=== PATIENT | female | born 2000 | race Caucasian/White ===

== ENCOUNTER 2023-12-12 21:21 | Emergency (ER) | payer OTHER, SELFPAY ==
[2023-12-12 21:22] VITALS: BP 128/83
[2023-12-12 22:05] VITALS: BMI 36.4
[2023-12-12 22:09] VITALS: BP 110/81
--- NOTE | 2023-12-12 22:57 | ED.GENMED ---
History of Present Illness
<ANN-MARIE Hull - Last Filed: 12/13/23 21:05>
General
Chief Complaint: Throat Problem
Source: patient
Exam Limitations: none
Time Seen by Provider: 12/12/23 22:16
Nursing documentation reviewed up to this point in time: agreed with
History of Present Illness
History of Present Illness:
Patient is a 23-year-old female who was eating fish prior to arrival and felt that the fishbone got stuck in her throat and still feels the sensation. She is able to swallow her own secretions without difficulty. She denies any shorntess of breath
.
Past History
<ANN-MARIE Hull - Last Filed: 12/13/23 21:05>
Past History
ED Past Medical History: None
ED Past Surgical History: None
Social History
Tobacco: Non-smoker
Alcohol: None
Drug: None
Personal: Single
Living: with family
Review of Systems
<ANN-MARIE Hull - Last Filed: 12/13/23 21:05>
Review of Systems
Allergies reviewed?: Yes
All Other Systems: ROS reviewed and negative except as documented in HPI and ROS
Constitutional: Reports no symptoms
EENT: Reports other (foreign body sensation in throat )
Respiratory: Reports no symptoms; Denies cough or trouble breathing
Phy Exam
<ANN-MARIE Hull - Last Filed: 12/13/23 21:05>
General Physical Exam
General Presentation: no apparent distress
General age: appears stated age
General Skin: warm and dry
General Habitus: normal
General Mental: alert
General Hydration: appears well hydrated
ENT Exam
ENT Exam: EOMI, neck supple and other (Airway patent no drooling tolerating secretions well)
Cardiovascular Exam
Cardiovascular Exam: regular rate/rhythm, no murmur and normal peripheral pulses
Pulmonary Exam
Pulmonary Exam: lungs clear and no respiratory distress
Neurological Exam
Neurological Exam: alert and oriented x3
Musculoskeletal Exam
Musculoskeletal Exam: full ROM
Skin Exam
Skin Exam: normal color and warm/dry
Psychiatric Exam
Psychiatric Exam: normal mood/affect
Course
<ANN-MARIE Hull - Last Filed: 12/13/23 21:05>
Orders/Labs/Results
Orders:
Orders
12/12/23 22:23
Neck Soft Tissue [CR Soft Tissue Neck ] Urgent
Comment:
Reason For Exam: possible fish bone stuck in throat
12/12/23 23:01
IV Insert/Care/Rem.- Treatment PRN
0.9% Sodium Chloride 1000 ml [Nss] 1,000 ml IV BOLUS
12/12/23 23:06
Complete Blood Count/With Diff Urgent
Comprehensive Metabolic Panel Urgent
HCG, Serum Qualitative Screen Urgent
Comment: ADD ON
12/13/23 00:01
CT Neck With Iv Contrast Urgent
Reason For Exam: possible foreign body in throat (fishbone)
12/13/23 00:02
Add On- LAB Urgent
Tests Added?: HCG Qual
Abnormal Lab Results
12/12/23
23:06
WBC 12.6 H 10^3/uL
(4.8-10.8)
MCV 80.5 L fL
(81.0-99.0)
Abs Immat Gran (auto) 0.1 H 10^3/uL
(0-0.05)
Absolute Neuts (auto) 7.3 H 10^3/uL
(1.4-6.5)
Absolute Lymphs (auto) 4.2 H 10^3/uL
(1.2-3.4)
Absolute Monos (auto) 0.8 H 10^3/uL
(0.1-0.6)
Immature Gran % 0.9 H %
(0-0.5)
12/12/23 23:06
12/12/23 23:06
Vital Signs
Initial and Last Documented VS:
Initial Vital Signs
Temp Pulse Resp BP Pulse Ox
98.1 F 107 19 128/83 98
12/12/23 21:22 12/12/23 21:22 12/12/23 21:22 12/12/23 21:22 12/12/23 21:22
Last Documented Vital Signs
Temp Pulse Resp BP Pulse Ox
98.1 F 77 18 121/77 98
12/12/23 21:22 12/13/23 01:45 12/13/23 01:45 12/13/23 01:45 12/13/23 01:45
<Dorys Garrison, DO - Last Filed: 12/13/23 01:38>
Orders/Labs/Results
Orders:
Orders
12/12/23 22:23
Neck Soft Tissue [CR Soft Tissue Neck ] Urgent
Comment:
Reason For Exam: possible fish bone stuck in throat
12/12/23 23:01
IV Insert/Care/Rem.- Treatment PRN
0.9% Sodium Chloride 1000 ml [Nss] 1,000 ml IV BOLUS
12/12/23 23:06
Complete Blood Count/With Diff Urgent
Comprehensive Metabolic Panel Urgent
HCG, Serum Qualitative Screen Urgent
Comment: ADD ON
12/13/23 00:01
CT Neck With Iv Contrast Urgent
Reason For Exam: possible foreign body in throat (fishbone)
12/13/23 00:02
Add On- LAB Urgent
Tests Added?: HCG Qual
Abnormal Lab Results
12/12/23
23:06
WBC 12.6 H 10^3/uL
(4.8-10.8)
MCV 80.5 L fL
(81.0-99.0)
Abs Immat Gran (auto) 0.1 H 10^3/uL
(0-0.05)
Absolute Neuts (auto) 7.3 H 10^3/uL
(1.4-6.5)
Absolute Lymphs (auto) 4.2 H 10^3/uL
(1.2-3.4)
Absolute Monos (auto) 0.8 H 10^3/uL
(0.1-0.6)
Immature Gran % 0.9 H %
(0-0.5)
12/12/23 23:06
12/12/23 23:06
Vital Signs
Initial and Last Documented VS:
Initial Vital Signs
Temp Pulse Resp BP Pulse Ox
98.1 F 107 19 128/83 98
12/12/23 21:22 12/12/23 21:22 12/12/23 21:22 12/12/23 21:22 12/12/23 21:22
Last Documented Vital Signs
Temp Pulse Resp BP Pulse Ox
98.1 F 77 18 121/77 98
12/12/23 21:22 12/13/23 01:45 12/13/23 01:45 12/13/23 01:45 12/13/23 01:45
<ANN-MARIE Hull - Last Filed: 12/13/23 21:05>
MDM/Problems Addressed
Differential Diagnosis Includes:
Not limited to foreign body esophageal, abrasion to esophagus less likely aspiration
MDM/Problems Addressed:
Patient is a 23-year-old female who was eating fish and felt that this fishbone got stuck in her throat. She presents awake alert no acute distress she does describe this foreign body sensation. She has no drooling no trismus she is able to
swallow her own secretions she has a clear voice lungs are clear she is not on hypoxic. No acute findings on x-ray Case reviewed ED physician.
Will obtain CAT scan
0015: Care of patient at this time transferred to Dr. Garrison
<Dorys Garrison DO - Last Filed: 12/13/23 01:38>
*Radiology
Radiology exam reviewed: preliminary read by ED provider (Soft tissue neck shows no convincing evidence of fishbone foreign body.) and radiology read reviewed (CT of the neck shows no radiopaque foreign body. No inflammatory changes. Epiglottis is
unremarkable.)
*Pulse Oximetry
Patient hypoxic: no
*Critical Care Note
Total Time (30-74mins, 75-104mins- exclusive of procedures): Not Applicable
ED Attending Note
<ANN-MARIE Hull - Last Filed: 12/13/23 21:05>
-
Portions of this chart may have been created with voice recognition software.� Occasional wrong word or��sound alike� substitutions may have occurred due to the inherent limitations of voice recognition software.
<Dorys Garrison DO - Last Filed: 12/13/23 01:38>
ED Attending Note
Patient seen and examined by attending physician: Yes
I performed a history and physical exam of patient and discussed management with resident, I reviewed resident's note and agree with documented findings and plan of care.: Yes
ED Attending Note:
23-year-old female with no significant past medical history presents with posterior inferior pharyngeal foreign body sensation that began while eating fish that contained fish bones. She denies choking nor coughing, no difficulty swallowing but
does complain of focal pain in her throat with swallowing. No chest pain or shortness of breath.
23-year-old appears her stated age, bright and alert, pleasant, appears in no acute distress.
Respirations are easy and nonlabored. Handling secretions well.
HEENT: Posterior pharynx is clear without abrasion nor edema nor erythema.
Concern for posterior pharyngeal foreign body/fishbone.
Patient denies choking or gagging or coughing; history is not consistent with aspiration.
Initial soft tissue of the neck is not but due to persistent discomfort will check convincing for foreign body CT of the neck assess for foreign body/fishbone.
12/13/[address] soft tissue of the neck shows no evidence of radiopaque foreign body. No significant inflammatory changes. Epiglottis is unremarkable.
Incidental mild soft tissue in the anterior mediastinum is nonspecific but most suggestive of residual thymic tissue.
Recommend soft diet over the next several days, encourage clear liquids.
Follow-up with PCP for recheck.
Discharge Plan
Departure
Patient Disposition: Home (Routine Discharge)
Date of Disposition: 12/13/23
Time of Disposition: 01:35
Patient with high blood pressure during this ER visit?: No
Condition: Good
Discharge Problem:
Irritation of pharynx, swallowed fish bone
Instructions: Sore throat in adults, Soft Diet
Prescriptions:
No Action
sertraline 50 MG tablet
50 mg PO DAILY
loratadine 10 MG tablet
10 mg PO DAILY
hydrocodone-acetaminophen 1 TABLET tablet
1 - 2 tab PO Q4HPRN PRN (Reason: moderate to severe pain) Qty: 10 0RF
Referrals:
Carissa Andrade PA [Family Provider] - As needed
Interventions
Interventions:
*Risk Screen - Suicide Last Done: 12/12/23 21:22
*General Assessment Last Done: 12/12/23 21:22
*Neglect/Abuse Screening Last Done: 12/12/23 21:22
ED- Fall Risk Assessment Last Done: 12/12/23 22:05
*ED COVID-19 Vaccine History Last Done: 12/12/23 22:05
*Nursing Disposition Last Done: 12/13/23 01:45
ED-EENT Assessment Last Done: 12/12/23 22:05
ED- Pulmonary Assessment Last Done: 12/12/23 22:05
Discharge Date and Time
Discharge Date/Time: 12/13/23 01:45
Print Language: JAPANESE
[2023-12-12 23:19] LABS: % Basophils 0.2 % (0-2); % Eosinophils 2.5 % (0-6); % Immature Granulocytes 0.9 % (0-0.5); % Monocytes 5.9 % (1.7-9.3); % Neutrophils 57.5 % (42.2-75.2); Absolute Eosinophils 0.3 10^3/uL (0-0.7); Absolute Immature Granulocytes 0.1 10^3/uL (0-0.05); Absolute Lymphocytes 4.2 10^3/uL (1.2-3.4); Absolute Monocytes 0.8 10^3/uL (0.1-0.6); Absolute Neutrophils 7.3 10^3/uL (1.4-6.5); Hematocrit 37.6 % (37.0-47.0); Hemoglobin 13.3 g/dL (12.0-16.0); Mean Corp Hgb Conc. 35.4 g/dL (33.0-37.0); Mean Corpuscular Hgb 28.5 pg (27.0-31.0); Mean Corpuscular Volume 80.5 fL (81.0-99.0); Mean Platelet Volume 9.7 fL (7.4-10.4); Nucleated Red Blood Cells % 0 %; Platelet Count 212 10^3/uL (130-400); Red Blood Cell Count 4.67 10^6/uL (4.20-5.40); Red Cell Dist. Width 12.5 % (11.5-14.5); White Blood Cell Count 12.6 10^3/uL (4.8-10.8)
[2023-12-12] MEDS: NSS 1000 IV (23:21)
[2023-12-12 23:48] LABS: ALT (SGPT) 22 U/L (0-35); AST (SGOT) 22 U/L (14-36); Albumin 4.1 g/dl (3.5-5.0); Alkaline Phosphatase 86 U/L (38-126); Blood Urea Nitrogen 16 mg/dl (7-17); Calcium 9.7 mg/dl (8.4-10.2); Carbon Dioxide 25 mmol/L (22-30); Chloride 103 mmol/L (98-107); Estimated Creatinine Clearance 108 ml/min; Glucose 94 mg/dl (70-99); Potassium 3.8 mmol/L (3.5-5.1); Sodium 139 mmol/L (135-145); Total Bilirubin 0.8 mg/dl (0.2-1.3); Total Protein 6.4 g/dl (6.3-8.2); eGFR > 60.00
[2023-12-13 00:19] LABS: HCG, Serum Qualitative Screen Negative
[2023-12-13 01:45] VITALS: BP 121/77
== END 2023-12-13 01:45 | disposition home or self-care (01) ==
LOC: EMR 21:21
PROVIDERS: Nurse Practitioner; EMERGENCY PHYSICIAN Emergency Medicine; FAMILY PHYSICIAN Physician Assistant Medical
DX: J39.2 Other diseases of pharynx (principal)
CPT/HCPCS: 99284; 96360; 70360; 70491; 80053; 84703; 85025; Q9967

== ENCOUNTER 2023-12-25 20:59 | Emergency (ER) | payer OTHER, SELFPAY ==
[2023-12-25 21:02] VITALS: BP 137/103
[2023-12-25 21:17] VITALS: BP 118/88
[2023-12-25 21:19] VITALS: BMI 34.5
--- NOTE | 2023-12-25 22:58 | ED.GENMED ---
History of Present Illness
General
Chief Complaint: Suicidal Ideation
Source: patient
Exam Limitations: none
Time Seen by Provider: 12/25/23 21:38
Nursing documentation reviewed up to this point in time: agreed with
History of Present Illness
History of Present Illness:
The patient is a pleasant 23-year-old female with past medical history of anxiety and depression who reports that her depression has intensified over the last week. The patient reports that ' life just feels like too much'. Patient reports he has
thoughts of hurting himself. For example, she reports that she took two 500 mg tablets of Tylenol prior to arrival and thought about taking more but decided not to. She reports in the past she has thought about running into traffic. Patient
reports that she lives at home with her mom and dad and feels safe but does not want them to know she is here. 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 Patient denies drugs and alcohol. Patient reports that she feels
she needs inpatient psychiatric management.
Past History
Past History
ED Past Medical History: Psychiatric
ED Past Surgical History: Appendectomy
Social History
Tobacco: Non-smoker
Alcohol: None
Drug: None
Personal: Single
Living: with family
Employment: Student
Family History
Family History: Other
Review of Systems
Review of Systems
Allergies reviewed?: Yes
All Other Systems: ROS reviewed and negative except as documented in HPI and ROS
Constitutional: Reports no symptoms
EENT: Reports no symptoms
Respiratory: Reports no symptoms
Cardiac: Reports no symptoms
ABD/GI: Reports no symptoms
: Reports no symptoms
Musculoskeletal: Reports no symptoms
Skin: Reports no symptoms
Neurological: Reports no symptoms
Endocrine: Reports no symptoms
Hematologic/Lymphatic: Reports no symptoms
Psychiatric: Reports depression, anxiety and suicidal
Phy Exam
Physical Exam
Physical Exam:
Physical Exam
General: No apparent distress but flat affect. Poor eye contact
Neck: supple. no meningeal signs. normal psoterior pharynx
Heart: s1/s2 regular rate and rhythm, no murmur. equal radial pulses.
Lungs: no acute respiratory distress. clear bilaterally
Abdomen: normal bowel sounds. not tender. no CVAT
Neuro: alert and oriented. no focal neurological deficits
Skin: no rash
Psychiatric: well kept. interactive and cooperative
Extremities: no edema. no calf tenderness. negative homans. good distal pulses
Course
Orders/Labs/Results
Orders:
Orders
12/25/23 21:02
1:1 Observation - Suicide/ Violent Behavior As Directed
Crisis Consult Urgent
Reason for Consult: SUICIDAL
12/25/23 22:42
Test Result ONCE
12/25/23 22:53
Acetaminophen Urgent
Complete Blood Count/With Diff Urgent
Comprehensive Metabolic Panel Urgent
HCG, Serum Qualitative Screen Urgent
Salicylate Urgent
12/25/23 23:27
Urine Drug Abuse Screen Urgent
Date Specimen was Collected: 12/25/23
Time Specimen was Collected: 22:43
Abnormal Lab Results
12/25/23
22:53
WBC 14.4 H 10^3/uL
(4.8-10.8)
Abs Immat Gran (auto) 0.1 H 10^3/uL
(0-0.05)
Absolute Neuts (auto) 8.7 H 10^3/uL
(1.4-6.5)
Absolute Lymphs (auto) 4.4 H 10^3/uL
(1.2-3.4)
Absolute Monos (auto) 0.8 H 10^3/uL
(0.1-0.6)
Immature Gran % 0.7 H %
(0-0.5)
Salicylates < 1.0 L mg/dl
(2.0-20.0)
Acetaminophen < 10 L ug/ml
(10-30)
12/25/23 22:53
12/25/23 22:53
Vital Signs
Initial and Last Documented VS:
Initial Vital Signs
Temp Pulse Resp BP Pulse Ox
98.8 F 94 19 137/103 97
12/25/23 21:02 12/25/23 21:02 12/25/23 21:02 12/25/23 21:02 12/25/23 21:02
Last Documented Vital Signs
Temp Pulse Resp BP Pulse Ox
98.3 F 85 18 118/88 95
12/25/23 21:17 12/25/23 21:17 12/25/23 23:25 12/25/23 21:17 12/25/23 21:17
MDM/Problems Addressed
Differential Diagnosis Includes:
Acute depressive episode, acute anxiety
MDM/Problems Addressed:
Patient presents with acute anxiety and depression
Chronic conditions affecting care: Psychiatric illness
Acute Exacerbation and/or Progression of Chronic Illness: Psychiatric illness
*Pulse Oximetry
Patient hypoxic: no
*EKG
Interpreted by ED Provider?: NA
*Library Supervisor Interpretation
Rate: Library Supervisor- N/A
*Critical Care Note
Total Time (30-74mins, 75-104mins- exclusive of procedures): Not Applicable
Data Reviewed
Source: patient
Patient Management
Social determinants of health affecting care: Living situation and Strong social support
Discussion with other providers: Other ([place] crisis)
ED Attending Note
-
Portions of this chart may have been created with voice recognition software.� Occasional wrong word or��sound alike� substitutions may have occurred due to the inherent limitations of voice recognition software.
Discharge Plan
Departure
Prescriptions:
No Action
sertraline 50 MG tablet
50 mg PO DAILY
loratadine 10 MG tablet
10 mg PO DAILY
hydrocodone-acetaminophen 1 TABLET tablet
1 - 2 tab PO Q4HPRN PRN (Reason: moderate to severe pain) Qty: 10 0RF
Referrals:
UNKNOWN - PT NOT,INTERVIEWE [Family Provider] -
Interventions
Interventions:
*Risk Screen - Suicide Last Done: 12/25/23 21:02
*General Assessment Last Done: 12/25/23 21:02
*Neglect/Abuse Screening Last Done: 12/25/23 21:02
ED- Fall Risk Assessment Last Done: 12/25/23 21:54
*ED COVID-19 Vaccine History Last Done: 12/25/23 21:19
ED-Psychological Assessment Last Done: 12/25/23 21:19
Discharge Date and Time
Print Language: HUNGARIAN
[2023-12-25 23:03] LABS: % Basophils 0.1 % (0-2); % Eosinophils 2.7 % (0-6); % Immature Granulocytes 0.7 % (0-0.5); % Lymphocytes 30.5 % (20.5-51.1); % Monocytes 5.6 % (1.7-9.3); % Neutrophils 60.4 % (42.2-75.2); Absolute Eosinophils 0.4 10^3/uL (0-0.7); Absolute Immature Granulocytes 0.1 10^3/uL (0-0.05); Absolute Lymphocytes 4.4 10^3/uL (1.2-3.4); Absolute Monocytes 0.8 10^3/uL (0.1-0.6); Absolute Neutrophils 8.7 10^3/uL (1.4-6.5); Hematocrit 41.5 % (37.0-47.0); Hemoglobin 14.2 g/dL (12.0-16.0); Mean Corp Hgb Conc. 34.2 g/dL (33.0-37.0); Mean Corpuscular Hgb 29.1 pg (27.0-31.0); Mean Platelet Volume 9.4 fL (7.4-10.4); Nucleated Red Blood Cells % 0 %; Platelet Count 193 10^3/uL (130-400); Red Blood Cell Count 4.88 10^6/uL (4.20-5.40); Red Cell Dist. Width 12.6 % (11.5-14.5); White Blood Cell Count 14.4 10^3/uL (4.8-10.8)
[2023-12-25 23:19] LABS: HCG, Serum Qualitative Screen Negative
[2023-12-25 23:24] LABS: ALT (SGPT) 19 U/L (0-35); AST (SGOT) 17 U/L (14-36); Acetaminophen < 10 ug/ml (10-30); Albumin 4.1 g/dl (3.5-5.0); Alkaline Phosphatase 102 U/L (38-126); Blood Urea Nitrogen 12 mg/dl (7-17); Calcium 9.5 mg/dl (8.4-10.2); Carbon Dioxide 24 mmol/L (22-30); Chloride 104 mmol/L (98-107); Estimated Creatinine Clearance 119 ml/min; Glucose 99 mg/dl (70-99); Salicylate < 1.0 mg/dl (2.0-20.0); Sodium 139 mmol/L (135-145); Total Bilirubin 0.5 mg/dl (0.2-1.3); Total Protein 6.6 g/dl (6.3-8.2); eGFR > 60.00
[2023-12-26 00:01] LABS: Amphetamines Negative (Negative); Barbiturates Negative (Negative); Benzodiazepines Negative (Negative); Buprenorphine Negative (Negative); Cocaine Negative (Negative); Marijuana Negative (Negative); Methadone Negative (Negative); Methamphetamines Negative (Negative); Opiates Negative (Negative); Phencyclidine Negative (Negative); Tricyclic Antidepressants Negative (Negative)
== END 2023-12-26 05:01 ==
LOC: EMR 20:59
PROVIDERS: EMERGENCY PHYSICIAN Emergency Medicine
DX: R45.851 Suicidal ideations (principal); F41.8 Other specified anxiety disorders; Z90.49 Acquired absence of other specified parts of digestive tract
CPT/HCPCS: 99283; 80053; 80143; 80179; 80306; 84703; 85025